=== PATIENT | male | born 1985 | race Caucasian/White ===

== ENCOUNTER 2017-02-12 02:53 | Emergency (ER) | payer SELFPAY ==
[~2017-02-12] VITALS: Ht 185.4 cm; Wt 129.3 kg
[~2017-02-12 02:53] MED LIST: VALACYCLOVIR1000 MG PO
[2017-02-12] MEDS ORDERED: ZOFRAN ODT4 MG PO (05:43)
[2017-02-12] MEDS ORDERED: BENTYL10 MG PO (05:43)
== END 2017-02-12 06:05 | disposition home or self-care (01) ==
LOC: ED 02:53
DX: R10.9 Unspecified abdominal pain (principal); Z88.5 Allergy status to narcotic agent
CPT/HCPCS: 74022; 80053; 81001; 83690; 85025; 96361; 96374; 96375; 96376; 99284; J2405; J3010; J7030

== ENCOUNTER 2017-07-30 15:12 | Emergency (ER) | payer SELFPAY ==
[~2017-07-30] VITALS: Ht 185.4 cm; Wt 132.4 kg
[~2017-07-30 15:12] MED LIST changes: +BENTYL10 MG PO; +ZOFRAN ODT4 MG PO
== END 2017-07-30 15:35 | disposition home or self-care (01) ==
LOC: ED 15:12
DX: T16.2XXA Foreign body in left ear, initial encounter (principal)

== ENCOUNTER 2019-12-27 06:25 | Day surgery (SDC) | payer OTHER ==
[~2019-12-27] VITALS: Ht 185.4 cm; Wt 114.8 kg
[2019-12-27] MEDS ORDERED: GABAPENTIN300 MG PO (08:01)
[2019-12-27] MEDS ORDERED: HYDROCODON-ACE1 EA10 PO (08:01)
--- NOTE | 2019-12-27 08:14 | NUR ---
12/27/19 0814 Jolynn Jensen 0804-PT ARRIVES TO PACU ON 6 L VIA MASK AND IS UNRESPONSIVE TO VERBAL STIMULUS. FOGGING IN MASK PRESENT AND PT IS SNORING. VSS. 0805-ICE AND ELEVATION TO E. PT REMAINS UNRESPONSIVE AND VSS. FOGGING IN MASK PRESENT.
--- NOTE | 2019-12-27 08:40 | OR ---
[facility] [address], [place] [address] Signed DATE OF OPERATION: 12/27/2019 SURGEON: Luigi Blakely MD PREOPERATIVE DIAGNOSIS: Carpal tunnel syndrome, right. POSTOPERATIVE DIAGNOSIS: Carpal tunnel syndrome, right. PROCEDURE PERFORMED: Right carpal tunnel release. ANESTHESIA: [place] block. TOURNIQUET TIME: 20 minutes. BRIEF HISTORY: Meggan is a 34-year-old gentleman with progressive worsening of pain and numbness in his hand. Nerve conduction studies confirmed carpal tunnel. Risks and benefits of operative treatment were discussed with him and he elected to proceed. DESCRIPTION OF PROCEDURE: Once consent was obtained, he was taken to the operating room. After adequate anesthesia was placed on operating room table, all downside pressure points well padded. The arm was prepped and draped in a standard sterile fashion. A 1.5 cm incision was made in the distal wrist crease carried through skin and subcutaneous tissue. The palmaris longus was identified and retracted and protected. Under direct loupe magnification, the transverse carpal ligament was identified, dissected free of overlying soft tissue. It was released approximately a cm and half distally, released to the distal extent. This was again done under direct visualization with tenotomy scissors. The canal was then palpated, the release was complete. The wound was copiously irrigated with normal saline and closed with 3-0 nylon. A 6 mL of 0.25% plain Marcaine was injected at the end of the procedure. The wound was dressed with bacitracin, Adaptic, 4 x 8s, and gauze. He tolerated the procedure well. All sponge, needle, and instrument counts were correct. Electronically Signed By: LUIGI BLAKELY MD 12/27/19 0840 PATIENT NAME: MEGGAN RICHTER OPERATIVE REPORT DATE OF : 83 REPORT #: [id number] PHYSICIAN: LUIGI BLAKELY MD PCP: EMY SEVERINO MD REPORT IS CONFIDENTIAL AND NOT TO BE RELEASED WITHOUT AUTHORIZATION [address] [address] Signed Luigi Blakely MD BA/MODL /[id number] Copies: ~ Electronically Signed By: LUIGI BLAKELY MD 12/27/19 0840 PATIENT NAME: MEGGAN RICHTER OPERATIVE REPORT DATE OF : 83 REPORT #: [id number] PHYSICIAN: LUIGI BLAKELY MD PCP: EMY SEVERINO MD REPORT IS CONFIDENTIAL AND NOT TO BE RELEASED WITHOUT AUTHORIZATION
== END 2019-12-27 08:53 | disposition home or self-care (01) ==
LOC: OPS 06:25 → DS 06:25 → OPS 08:00
PROVIDERS: Specialist
PROC: 01N50ZZ Release Median Nerve, Open Approach (ICD-10-PCS; principal; 2019-12-27 08:00)
DX: G56.01 Carpal tunnel syndrome, right upper limb (principal); Z88.5 Allergy status to narcotic agent; Z87.891 Personal history of nicotine dependence; Z98.890 Other specified postprocedural states
CPT/HCPCS: 01810; J0690; J2704; J7121